=== PATIENT | male | born 1980 | race American Indian/Alaskan Native ===

== ENCOUNTER 2024-10-14 16:53 | Emergency (ER) | payer MEDICAID, SELFPAY ==
[2024-10-14 16:56] VITALS: BP 148/100; PULSE 89; RESP 20; TEMP 36.6; O2SAT 96
--- NOTE | 2024-10-14 18:04 | PD.EDADULT ---
ED General RME/HPI General Stated complaint: CLEARANCE Time Seen by Provider: 10/14/24 17:40 Arrival date/time: 10/14/24 16:53 RME / HPI RME / HPI narrative: DR. DONALDSON MAIN ED EVALUATION: 44 year old male presents to the Emergency Department brought in by police as a medical clearance for elevated blood glucose, 576. He states he was diagnosed with diabetes but does not take medications. Associated symptoms include diaphoresis, polydipsia, and bilateral hand numbness. No chest pain or shortness of breath reported. No other symptoms reported at this time. Related Data Allergies Allergy/AdvReac Type Severity Reaction Status Date / Time Penicillins Allergy Severe Swelling Verified 12/24/20 12:51 of Lip/Tongue/Throat Review of Systems Review of Systems Systems Reviewed: All systems reviewed, normal except as documented Narrative Review of Systems: GEN: No fever, no chills, no weight loss, + diaphoresis, + polydipsia EYES: No discharge, no visual changes, no pain HEENT: No ear pain, no congestion, no sore throat PULM: No shortness of breath, no cough, no congestion CV: No chest pain, no dyspnea on exertion, no palpitations GI: No nausea, no vomiting, no diarrhea, no pain, no constipation : No frequency, no urgency and no dysuria MUSC/SKEL: No joint pain, no back pain SKIN: No rash PSYCH: No hallucinations, no depression HEME/LYMPH: No easy bleeding or bruising tendencies NEURO: + bilateral hand numbness; no weakness, no headache Past Medical History Past Medical History ENDOCRINE: Positive Diabetes Mellitus Type 2 (but does not take medications) Social History SMOKING STATUS: Current every day smoker SUBSTANCE USE: unknown ED Exam Narrative Physical exam: GENERAL APPEARANCE:? alert and oriented x 4, well-developed, well-nourished, no acute distress, diaphoretic, hands cuffed to the back and sitting up straight in a chair at ambulance bay HEENT: normocephalic, atraumatic NECK: supple LUNGS: no respiratory distress, normal effort HEART: good peripheral perfusion ABDOMEN: non distended EXTREMITIES:? atraumatic, hands cuffed to the back NEUROLOGIC: awake; alert and oriented x4; cranial nerves II-XII grossly intact PSYCHIATRIC:? appropriate mood and affect SKIN: warm, dry, normal color; no rashes Course Quality Measures none Orders Category Date Time Status A1C [Glycohemoglobin w (eAG)] Stat Lab 10/14/24 17:50 Completed Beta Hydroxybutyrate Stat Lab 10/14/24 17:50 Results CBC Stat Lab 10/14/24 17:50 Received CMP [Comprehensive Metabolic Panel] Stat Lab 10/14/24 17:50 Results Troponin I Stat Lab 10/14/24 17:50 Results UA, C/S IF [Urinalysis, C/S if Indicated] Stat Lab 10/14/24 17:41 Ordered Sodium Chloride 0.9% 1000 ml [Ns] 1,000 ml Med 10/14/24 17:41 Active IV 999 mls/hr Vital Signs Vital signs: Vital Signs Temperature 97.8 F 10/14/24 16:56 Pulse Rate 89 10/14/24 16:56 Respiratory Rate 20 10/14/24 16:56 Blood Pressure 148/100 H 10/14/24 16:56 Pulse Oximetry (%) 96 10/14/24 16:56 Oxygen Delivery Method Room Air 10/14/24 16:56 Discharge Plan Prescriptions/Referrals Referrals: No Primary/Family,Physician [Primary Care Provider] - In 1 week Patient/Caregiver Discharge Instructions Print Language: Malagasy MDM Narrative [facility] hospital course: I, Rissa Payne am scribing for and in the presence of Dr. Donaldson. Clinical Information Provided by patient and law enforcement Medical Records Reviewed Long Term Meds/Rx Considered, not Ordered None Labs/Rad/Tests considered, not Ordered None Chronic Illness/Social Conditions Add or document further as needed: He states he was diagnosed with diabetes but does not take medications. EKG EKG not done Lab Interpretation Labs: other (pending) Imaging Imaging interpretation: none Medication Administration(s) Medication Administration History Sodium Chloride (Ns) 1,000 mls @ 999 mls/hr IV .Q1H1M ONE Stop: 10/14/24 18:41 Diagnosis Differential diagnosis: DKA, dehydration, electrolyte imbalance Most likely dx, and/or detailed dx discussion: No official diagnoses at this time, still pending diagnostic tests. Patient signout to the 7th grade social studies teacher provider. Dispositon Disposition: other (Patient signout to the 7th grade social studies teacher provider.) Disposition comments: 1800: Patient was signed out to Dr. Alaniz. Past medical, surgical, social and family history reviewed. Vitals and home medications reviewed. Results and treatment plan discussed. They will assume the care of the patient at this time and will follow the patient, pending remainder of labs and final disposition.
[2024-10-14 18:11] LABS: Beta Hydroxybutyrate 0.1 mmol/L (<0.6)
[2024-10-14 18:13] LABS: Basophils % (Auto) 0 % (0-2.5); Eosinophils # (Auto) 0.1 Thou/mm3 (0.0-0.5); Eosinophils % (Auto) 2 % (0-10); Hematocrit 49.8 % (41.0-53.0); Hemoglobin 17.4 g/dL (13.5-16.0); Immature Granulocytes % (Auto) 0 % (0-0); Immature Granulocytes Auto 0.02 Thou/mm3 (0.00-0.00); Lymphocytes # (Auto) 2.3 Thou/mm3 (1.0-4.8); Lymphocytes % (Auto) 26 % (10-50); Mean Corpuscular HGB Conc 34.9 g/dl (31.0-37.0); Mean Corpuscular Hemoglobin 30.2 pg (25.0-35.0); Mean Corpuscular Volume 86 fL (80-100); Monocytes # (Auto) 0.5 Thou/mm3 (0.0-0.8); Monocytes % (Auto) 6 % (0-12); Neutrophils # (Auto) 5.7 Thou/mm3 (1.8-7.7); Neutrophils % (Auto) 66 % (37-80); Nucleated Red Blood Cell % 0 /100 WBC (0); Platelet Count 250 Thou/mm3 (140-440); RDW Standard Deviation 40.1 fL (35.1-43.9); Red Blood Count 5.77 Miln/mm3 (4.50-5.90); White Blood Count 8.6 Thou/mm3 (3.8-10.6)
[2024-10-14 18:20] LABS: Glucose Estimated Average 289 mg/dL (80-131); Hemoglobin A1C 11.7 % Hgb (4.8-6.0)
[2024-10-14 18:37] LABS: Alanine Aminotransferase 46 U/L (10-49); Albumin, Serum 4.7 gm/dL (3.5-5.0); Albumin/Globulin Ratio 1.5 (1.2-2.2); Alkaline Phosphatase 193 U/L (46-116); Anion Gap 12 (7-16); Aspartate Amino Transferase 36 U/L (0-34); BUN/Creatinine Ratio 8 Ratio (12-20); Bilirubin,Total 0.8 mg/dL (0.3-1.2); Blood Urea Nitrogen 10 mg/dL (9-23); Calcium 9.5 mg/dL (8.3-10.6); Calcium (Corrected) 9.5 mg/dL (8.5-10.1); Carbon Dioxide 23.1 mMol/L (20.0-31.0); Chloride 101 mMol/L (98-107); Creatinine (Component) 1.2 mg/dL (0.6-1.3); Globulin 3.2 gm/dL (2.3-3.5); Osmolality,Calculated 292 (275-295); Potassium 4.1 mMol/L (3.4-5.1); Sodium 136 mMol/L (136-145); Total Protein 7.9 gm/dL (5.7-8.2); Troponin I < 0.020 ng/mL (0.0-0.045); eGFR > 60 See Note
[2024-10-14 18:47] LABS: Glucose 498 mg/dL (74-106)
[2024-10-14 19:09] VITALS: BMI 43.4
--- NOTE | 2024-10-14 19:15 | PD.EDMEDCL ---
ED Medical Clearance RME/HPI General Chief complaint: Medical Clearance Stated complaint: CLEARANCE Time Seen by Provider: 10/14/24 17:40 Arrival date/time: 10/14/24 16:53 RME / HPI RME / HPI Narrative: DR. POTTER MAIN ED EVALUATION: 44 year old male presents to the Emergency Department brought in by police as a medical clearance for elevated blood glucose, 576. He states he was diagnosed with diabetes but does not take medications. Associated symptoms include diaphoresis, polydipsia, and bilateral hand numbness. No chest pain or shortness of breath reported. No other symptoms reported at this time. This section includes all my notes and documentations, including HPI, PE, and ED course. Rojelio Alaniz MD HPI: 44 y/o male with Hx of Type II DM presents to ED BIB [facility] for medical clearance due to elevated blood sugar level of 600 mg/dL. Patient is non-compliant with his medications. Reports polydipsia and polyphagia and polyuria. No other complaints. ROS: All negative except as documented in HPI. Physical Exam: General: Alert and oriented. No acute distress when remaining still. Eyes: Conjunctivae and lids clear. ENT: No nasal congestion. Neck: Supple. Heart: RRR. Lungs: No respiratory distress. Good air movement. No rhonchi, wheezing, rales. Abdomen: Soft and nontender. Normal bowel sounds. No distension. No rebound or guarding. Back: No CVA tenderness. Skin: Warm and dry. Neuro: Alert and oriented X 3. I reviewed all diagnostic test results. Blood tests remarkable for glucose 498. At this point, diagnoses include hyperglycemia with no DKA. Treatment here included Insulin. Significant improvement noted. Based on my best medical judgment, made decision to medically clear the patient and no further evaluation or treatment indicated at this time. Patient understands and agrees to the discharge instructions customized and printed, see below. Discharge Instructions from Dr. Alaniz printed for you: 1. You are treated for severely high sugar level due to diabetes. 2. After treatment, you are medically clear for incarceration. 3. Take Janumet as prescribed for your diabetes. 4. Decrease food rich in glucose. Such as rice and pasta and bread and desserts and sugary drinks. 5. See a private doctor on 10/15/2024 or whenever you are released for recheck and further care. 6. Seek immediate medical care with any concerns. Rojelio Alaniz MD Related Information Previous Rx's ?Medication ?Instructions ?Recorded sitagliptin phosphate 50 1 tab PO BID #60 tabs 10/14/24 mg-metformin 1,000 mg tablet (Janumet) Allergies Allergy/AdvReac Type Severity Reaction Status Date / Time Penicillins Allergy Severe Swelling Verified 10/14/24 19:13 of Lip/Tongue/Throat Review of Systems Review of Systems Systems Reviewed: All systems reviewed, normal except as documented Past Medical History Past Medical History ENDOCRINE: Positive Diabetes Mellitus Type 2 (but does not take medications) Social History SMOKING STATUS: Current some day smoker SUBSTANCE USE: unknown ED Exam Narrative Physical exam: Refer to HPI above Course Quality Measures none Orders Category Date Time Status Glucose [Bedside Blood Glucose] NOW Care 10/14/24 20:30 Active A1C [Glycohemoglobin w (eAG)] Stat Lab 10/14/24 17:50 Completed Beta Hydroxybutyrate Stat Lab 10/14/24 17:50 Completed CBC Stat Lab 10/14/24 17:50 Completed CMP [Comprehensive Metabolic Panel] Stat Lab 10/14/24 17:50 Completed Troponin I Stat Lab 10/14/24 17:50 Completed UA, C/S IF [Urinalysis, C/S if Indicated] Stat Lab 10/14/24 17:41 Ordered Insulin Regular Med 10/14/24 18:46 Discontinued 15 unit SC X1 ONE Insulin Regular Med 10/14/24 19:28 Discontinued 15 unit SC X1 ONE Insulin Regular Med 10/14/24 21:26 Discontinued 5 unit SC X1 ONE Sodium Chloride 0.9% 1000 ml [Ns] 1,000 ml Med 10/14/24 17:41 Discontinued IV 999 mls/hr Vital Signs Vital signs: Vital Signs Temperature 97.8 F 10/14/24 16:56 Pulse Rate 89 10/14/24 16:56 Respiratory Rate 20 10/14/24 16:56 Blood Pressure 148/100 H 10/14/24 16:56 Pulse Oximetry (%) 96 10/14/24 16:56 Oxygen Delivery Method Room Air 10/14/24 16:56 Medical Clearance MDM Narrative MDM Narrative:: Scribe Attestation: Sarah Juarez, am scribing for and in the presence of Dr. Alaniz. Provider Notation: Although this document has been carefully reviewed, there may still be some phonetic and other typographical errors.? These errors are purely grammatical due to imperfections in the software program and should not be construed in any way to? compromise the substance of the patient's medical care during this visit. 44 y/o male with Hx of Type II DM presents to ED BIB [facility] for medical clearance due to elevated blood sugar level of 600 mg/dL. Patient is non-compliant with his medications. No other complaints. Patient data External records reviewed:: [facility] previous records (No recent ED records available for review.) and Other (specify) ([facility]) Clinical information provided by:: patient and law enforcement Social determinants that could affect healthcare access:: none Patient has the following chronic illnesses:: Type II DM How is presenting disease/condition affected by chronic disease/condition?: exacerbated by Evaluation data The following diagnostics were reviewed and interpreted by me:: lab results Lab and/or radiology exams considered but not ordered:: None Interpretation Summary: Blood tests remarkable for glucose 498. Medications / Prescriptions Medications or Prescriptions considered but not ordered:: None Medication administrations:: Medication Administration History Discontinued Medications Sodium Chloride (Ns) 1,000 mls @ 999 mls/hr IV .Q1H1M ONE Stop: 10/14/24 18:41 Insulin Human Regular (Insulin Hum Regular 1 Unit/0.01 Ml (Per Unit)) 15 unit SC X1 ONE Stop: 10/14/24 18:47 Insulin Human Regular (Insulin Hum Regular 1 Unit/0.01 Ml (Per Unit)) 15 unit SC X1 ONE Stop: 10/14/24 19:29 Last Admin: 10/14/24 20:00 Dose: 15 unit Documented By: EDMOND Co-signed By: Insulin Human Regular (Insulin Hum Regular 1 Unit/0.01 Ml (Per Unit)) 5 unit SC X1 ONE Stop: 10/14/24 21:27 Insulin 15 units SC followed by 5 units SC. Consultations Consultation(s) initiated? (list below): No Diagnosis Medical Clearance Differential Diagnosis: other (Hyperglycemia, DKA, dehydration, electrolyte normalities.) Most likely diagnosis given after review of the tests above:: Hyperglycemia due to diabetes with no DKA. Admission Indicated Admission indicated?: not indicated Explain why admission is indicated or not indicated:: With significant improvement, there was no indication for admission. Admission Request Was there a request for admission?: No Disposition Plan Disposition Plan: other (specify) (Discharge to law enforcement) Discharge Plan Plan Patient Disposition: Senior Care/Court/Law Prescriptions/Referrals Prescriptions/Med Rec: New Janumet 50-1,000 mg tablet 1 tab PO BID Qty: 60 0RF Referrals: No Primary/Family,Physician [Primary Care Provider] - In 1 week Problem List Clinical Impression: Diabetes Patient/Caregiver Discharge Instructions Discharge Activity: activity as tolerated Education Materials: ED Diabetes- Overview Additional Instructions: Discharge Instructions from Dr. Alaniz printed for you: 1. You are treated for severely high sugar level due to diabetes. 2. After treatment, you are medically clear for incarceration. 3. Take Janumet as prescribed for your diabetes. 4. Decrease food rich in glucose. Such as rice and pasta and bread and desserts and sugary drinks. 5. See a private doctor on 10/15/2024 or whenever you are released for recheck and further care. 6. Seek immediate medical care with any concerns. Print Language: Greenlandic
[2024-10-14] MEDS: INSULIN HUM REGULAR 1 UNIT/0.01 ML (PER UNIT) 15 UNIT SC (20:00)
[2024-10-14] MEDS: INSULIN HUM REGULAR 1 UNIT/0.01 ML (PER UNIT) 5 UNIT SC (21:44)
== END 2024-10-14 21:40 ==
PROVIDERS: Emergency Medicine; Emergency Provider Emergency Medicine
DX: Z02.89 Encounter for other administrative examinations (principal); E11.65 Type 2 diabetes mellitus with hyperglycemia
CPT/HCPCS: 36415; 80053; 81001; 82010; 83036; 84484; 85025; 96372; 99283; J1815